=== PATIENT | male | born 1975 | race Two or more races ===

== ENCOUNTER 2019-07-24 08:51 | Emergency (ER) | payer MEDICARE, MEDICAID ==
[~2019-07-24] VITALS: Ht 177.8 cm; Wt 84.0 kg
[2019-07-24] MEDS ORDERED: KETOROLAC 30MG/ML VIAL IV STA (15:25)
[2019-07-24] MEDS ORDERED: SODIUM CHLORIDE 0.9% 1,000 ML IV ONE (15:25)
[2019-07-24 15:47] LABS: CHLORIDE 107 mEq/L (98-107)
[2019-07-24 15:49] LABS: INR 0.9; PARTIAL THROMBOPLASTIN TIME 27.5 sec (23.4-31.0); PROTHROMBIN TIME 9.6 sec (9.6-11.0)
[2019-07-24 15:50] LABS: BASOPHILS % 0.8 % (0.0-2.0); EOSINOPHILS % 3.5 % (0.0-5.0); HEMOGLOBIN. 16.6 g/dL (14.0-18.0); LYMPHOCYTES % 25.3 % (20.0-50.0); MEAN CORPUSCULAR HEMOGLOBIN 28.6 pg (28.0-32.0); MEAN CORPUSCULAR VOLUME 82.9 fL (80.0-94.0); MEAN PLATELET VOLUME 7.6 fl (7.4-10.4); MONOCYTES % 6.5 % (2.0-8.0); NEUTROPHILS % 63.9 % (40.0-76.0); PLATELET 372 x1000/uL (130-400); RED CELL DISTRIBUTION WIDTH 13.6 % (11.6-14.6)
[2019-07-24 16:00] LABS: CLARITY URINE CLEAR (CLEAR); COLOR URINE YELLOW (YELLOW); KETONES URINE NEGATIVE (NEGATIVE); LEUKOCYTE ESTERASE URINE NEGATIVE (NEGATIVE); NITRITE URINE NEGATIVE (NEGATIVE); OCCULT BLOOD URINE NEGATIVE (NEGATIVE); PROTEIN URINE NEGATIVE (NEGATIVE); SPECIFIC GRAVITY URINE 1.011 (1.005-1.030); UROBILINOGEN URINE 0.2 E.U./dL (0.2-1.0)
[2019-07-24] MEDS ORDERED: IOHEXOL-300 100 ML BOTTLE ONE (18:07)
[2019-07-24 18:39] VITALS: BP 136/74
== END 2019-07-24 18:45 | disposition home or self-care (01) ==
LOC: ER 09:38
DX: K64.4 Residual hemorrhoidal skin tags (principal); K62.5 Hemorrhage of anus and rectum
CPT/HCPCS: 36415; 74177; 80053; 81003; 82270; 83690; 85025; 85610; 85730; 96374; 99284; J1885; J7030; Q9967

== ENCOUNTER 2021-05-04 14:57 | Emergency (ER) | payer MEDICARE, MEDICAID ==
[~2021-05-04] VITALS: Ht 175.3 cm; Wt 72.0 kg
[2021-05-04] MEDS ORDERED: NA PHOS,M-B/NA PHOS,DI-BA ENEMA 118ML PR ONE (23:30)
[2021-05-05] MEDS ORDERED: NA P230E RC (02:35)
[2021-05-05 03:54] VITALS: BP 134/92
== END 2021-05-05 03:55 | disposition home or self-care (01) ==
LOC: ER 14:57
DX: K59.00 Constipation, unspecified (principal); I10 Essential (primary) hypertension; F32.9 Major depressive disorder, single episode, unspecified
CPT/HCPCS: 74021; 93005; 99285

== ENCOUNTER 2022-03-02 22:21 | Emergency (ER) | payer MEDICARE, MEDICAID ==
[~2022-03-02] VITALS: Ht 180.3 cm; Wt 75.0 kg
[~2022-03-02 22:21] MED LIST: NA P230E RC
[2022-03-02 22:23] VITALS: BP 116/77
== END 2022-03-03 01:31 | disposition left against medical advice (07) ==
LOC: ER 22:21
DX: Z53.21 Procedure and treatment not carried out due to patient leaving prior to being seen by health care provider (principal); R10.13 Epigastric pain
CPT/HCPCS: 93005; 99283